=== PATIENT | male | born 1965 | race Two or more races ===

== ENCOUNTER 2021-06-10 03:01 | Emergency (ER) | payer MEDICAID, SELFPAY ==
--- NOTE | ~2021-06-10 | CT_ITS ---
EXAMINATION: CT ABDOMEN AND PELVIS WITHOUT CONTRAST CLINICAL INFORMATION: Hematuria. Rule out kidney stone. COMPARISON: Previous renal ultrasound February 2009 TECHNIQUE: Multidetector volumetric imaging was performed from the superior aspect of the liver through the pubic symphysis. Sagittal and coronal reformatted images were obtained on the technologist's workstation. This CT examination was performed using dose optimization techniques as appropriate, variously including the following: *Automated exposure control *Adjustment of mA and/or kV according to patient size (this includes techniques or standardized protocols for targeted exams where dose is matched to indication/reason for exam; i.e. extremities or head) *Use of iterative reconstruction technique DLP: 976 mGy-cm FINDINGS: Evaluation of the upper abdomen and lower chest is limited due to motion artifact. LUNG BASES: The visualized lung bases are unremarkable. LIVER, GALLBLADDER, AND BILIARY TREE: The liver is normal in size, shape, and attenuation. No focal hepatic lesion or biliary ductal dilatation is present. The gallbladder is unremarkable with no evidence of radiopaque gallstones, gallbladder wall thickening, or obvious pericholecystic inflammatory changes. PANCREAS: Unremarkable. SPLEEN: Unremarkable. ADRENAL GLANDS: Unremarkable. KIDNEYS AND URETERS: The kidneys are normal in size, shape, and attenuation. No hydronephrosis, hydroureter, or calculi seen. No perinephric stranding. BLADDER: Unremarkable. GASTROINTESTINAL TRACT: The small and large bowel are unremarkable. The appendix is unremarkable. ABDOMINAL WALL: There is a small umbilical hernia containing fat. LYMPH NODES: Normal. VASCULAR: Unremarkable. PELVIC VISCERA: Unremarkable. OSSEOUS STRUCTURES: Unremarkable. CT/CT abdomen pelvis wo con IMPRESSION: Limited exam due to motion artifact. No stone or hydronephrosis seen. Fleischner guidelines were followed.
[2021-06-10 03:13] VITALS: BP 161/88; PULSE 98; RESP 16; TEMP 37.2; O2SAT 95; BMI 36.0
[2021-06-10 03:31] LABS: MANUAL DIFF FLAG NO
[2021-06-10 03:33] LABS: Appearance Urine TURBID; Color Urine RED; Glucose Urine UA NEG (NEG); Leukocyte Esterase Urine 2+ (NEG); Nitrite Urine NEG (NEG); Specific Gravity - Urine 1.025 (1.005-1.025); UACC Culture Trigger YES; Urine Blood 3+ (NEG); Urine Ketones NEG (NEG); Urine Protein 2+ MG/DL (NEG-TRACE)
[2021-06-10 03:34] LABS: Basophils Absolute Auto 0.1 X10*3/uL (0.0-0.2); Basophils Percent Auto 0.3 % (0-2); Eosinophils Absolute Auto 0.2 X10*3/uL (0.0-0.4); Eosinophils Percent Auto 0.9 % (0-4); Hematocrit 41.6 % (42.0-52.0); Hemoglobin 13.9 g/dl (14.0-18.0); Imm Gran Abs Auto 0.06 X10*3/uL (0.00-0.03); Imm Gran Pct Auto 0.3 % (0.0-0.4); Lymphocytes Percent Auto 17.4 % (20-40); Mean Corpuscular HGB Conc 33.4 g/dl (31.0-36.0); Mean Corpuscular Hemoglobin 29.4 pg (27.0-33.0); Mean Corpuscular Volume 88.1 fL (80.0-98.0); Mean Platelet Volume 10.7 fL (9.4-12.4); Monocytes Percent Auto 5.9 % (2-11); Neutrophils Absolute Auto 13.1 x10*3/uL (2.0-8.3); Neutrophils Percent Auto 75.2 % (45-73); Platelet Count 211 X10*3/uL (160-400); Red Blood Count 4.72 X10*6/uL (4.60-5.80); Red Cell Distribution Width 12.9 % (11.0-16.0); White Blood Count 17.4 X10*3/uL (4.8-10.8)
[2021-06-10 03:39] LABS: Bacteria Urine TRACE /LPF; Mucus Urine TRACE /LPF; Squamous Epithelial Cell Urine TRACE /LPF
[2021-06-10 03:49] LABS: Alanine Aminotransferase 32 U/L (0-40); Albumin Level 4.3 g/dL (3.5-5.0); Alkaline Phosphatase 84 U/L (39-117); Anion Gap 11 (12-20); Aspartate Amino Transferase 19 U/L (5-37); Bilirubin Total 0.3 mg/dL (0.0-1.0); Blood Urea Nitrogen 14 mg/dL (9-16); Calcium 9.8 mg/dL (8.4-10.2); Carbon Dioxide 24 mmol/L (22-29); Chloride 106 mmol/L (96-108); Creatinine Clr Calc Pharmacy 87.5; Estimated Glomerular Filt Rate > 60; Glucose Random 110 mg/dL (60-115); Potassium 3.8 mmol/L (3.3-5.1); Sodium 137 mmol/L (135-145); Total Protein 7.3 g/dL (6.5-8.0)
[2021-06-10 06:35] VITALS: BP 159/86; PULSE 82; RESP 19; TEMP 36.9; O2SAT 98
--- NOTE | 2021-06-10 07:13 | ED_ITS ---
HPI - Male Genitourinary General Chief complaint: Urogenital-Male Stated complaint: blood in urine, neck pain Time Seen by Provider: 06/10/21 06:51 Source: patient Mode of arrival: ambulatory Limitations: no limitations History of Present Illness HPI Narrative: 56 years old male came in for evaluation of blood in the urine. Patient been having bloody urine for the past 2 days, now he is passing blood clots. Able to urinate, increased urinary frequency but no dysuria. Patient been having some suprapubic discomfort. Patient also complaining of left-sided neck pain and numbness for the past 3 days, otherwise declined any weakness. No chest pain. Patient stated that he feels constipated did not have a bowel movement for 2 days Never had abdominal surgery, no history of small-bowel obstruction. Related Data Previous Rx's Medication Instructions Recorded ciprofloxacin HCl 500 mg tablet 500 mg PO BID #14 tab 06/10/21 (Cipro) Allergies Allergy/AdvReac Type Severity Reaction Status Date / Time FRESH FRUIT Allergy Unknown ITCHING Uncoded 12/11/19 17:11 Review of Systems Review of Systems: all other systems are reviewed and are negative Constitutional: Reports as per HPI and Reports no additional constitutional complaints Eyes: Reports as per HPI and Reports no additional eye complaints Reports system reviewed and no additional complaints, except as documented Cardiovascular: Reports as per HPI and Reports no additional cardiovascular complaints Respiratory: Reports as per HPI and Reports no additional respiratory complaints Gastrointestinal: Reports as per HPI and Reports no additional gastrointestinal complaints Genitourinary: Reports no additional female genitourinary complaints Musculoskeletal: Reports no additional musculoskeletal complaints Skin/Breast: Reports system reviewed and no additional complaints, except as docu Psychiatric: Reports no additional psychiatric complaints Endocrine: Reports no additional endocrine complaints Hematologic/Lymphatic: Reports no additional hematologic/lymphatic complaints Allergic/Immunologic: Reports no additional allergic/immunologic complaints Reports system reviewed and no additional complaints, except as documented and Reports Abnormal speech present [facility] Social History Social History Alcohol intake: current Alcohol intake frequency: 0-2 drinks per day Patient Tobacco Use Status: Current everyday Tobacco user Smoked in Last 30 Days: Yes Use of substances other than those prescribed or required for medical reasons: Yes Substance Use Type: Crack/Cocaine Advance Directives: No Physical Exam Vital Signs: Vital Signs: Last Vital Signs Temp 98.7 F 06/10/21 08:31 Pulse 84 06/10/21 08:31 Resp 16 06/10/21 08:31 BP 176/88 H 06/10/21 08:31 Pulse Ox 96 06/10/21 08:31 BMI result Body Mass Index 36.0 vital signs have been reviewed as appeared to be correct. Blood pressure normal. Heart rate normal. Respiration rate normal. Temperature normal. Oxygen saturation normal. Appearance: Alert. Oriented X3. No acute distress. Head: Normal external exam. Normocephalic. Atraumatic. No Pantoja signs noted. No raccoon eyes noted Eyes: PERRLA. EOMI. Conjunctiva and sclera normal. Eyelids normal. ENT: TM's Normal. Pharynx normal. Uvula midline. Moist mucous membranes. No trismus noted. No drooling noted. No muffled voice noted. Neck: Normal inspection. Neck supple. FROM. No adenopathy. Thyroid Normal. No me ningeal signs. No neck mass noted. CVS: Normal heart rate and rhythm. Heart sound normal. No murmurs noted. Pulses normal throughout. Respiratory: No respiratory distress. Painless inspiration. Breath sounds normal. No wheezes/rales/rhonchi noted. Chest nontender. No accessory muscle usage noted or decreased air movement noted. Abdomen: Soft and nontender. Bowel sounds normal in all 4 quadrants. No distention noted. No organomegaly noted. No visible injury noted. Back: No CVA tenderness. Full range of motion noted. Skin: Skin warm and dry. Normal skin color. Normal skin turgor. No ra shes/lesions/lacerations noted. Extremities: No lower extremity edema. Extremities exhibit normal range of motion. Extremities nontender. Neuro: Oriented X 3. Cranial nerve exam: II-XII are grossly intact No motor deficit. No sensory deficit. Reflexes normal. Course Course Course Narrative: Assessment and plan 56 years old male came in for painless hematuria for 1 day. constipation for [address] of the abdomen pelvis show no reason for the hematuria and ruled out small-bowel obstruction.Patient declined using any anticoagulation therapy. 1. Constipation will give milk of magnesia. 2. painless hematuria will start the patient on Cipro and drink plenty of fluids. And patient follow-up with urologist in 1 week. [facility] - Male Genitourinary Lab Data Attestation: I reviewed the patient's lab results. Result diagrams: 06/10/21 03:30 06/10/21 03:30 Labs: Lab Results 06/10/21 06/10/21 06/10/21 Range/Units 03:30 03:30 03:30 WBC 17.4 H (4.8-10.8) X10*3/uL RBC 4.72 (4.60-5.80) X10*6/uL Hgb 13.9 L (14.0-18.0) g/dl Hct 41.6 L (42.0-52.0) % MCV 88.1 (80.0-98.0) fL MCH 29.4 (27.0-33.0) pg MCHC 33.4 (31.0-36.0) g/dl RDW 12.9 (11.0-16.0) % Plt Count 211 (160-400) X10*3/uL MPV 10.7 (9.4-12.4) fL Immature Gran % (Auto) 0.3 (0.0-0.4) % Neut % (Auto) 75.2 H (45-73) % Lymph % (Auto) 17.4 L (20-40) % [place]uming % (Auto) 5.9 (2-11) % Eos % (Auto) 0.9 (0-4) % Baso % (Auto) 0.3 (0-2) % Lymph # (Auto) 3.0 (1.2-4.9) X10*3/uL [place]uming # (Auto) 1.0 (0.1-1.2) X10*3/uL Eos # (Auto) 0.2 (0.0-0.4) X10*3/uL Baso # (Auto) 0.1 (0.0-0.2) X10*3/uL Abs Immat Gran (auto) 0.06 H (0.00-0.03) X10*3/uL Absolute Neuts (auto) 13.1 H (2.0-8.3) x10*3/uL Absolute Nucleated RBC 0.000 (0.0-0.012) X10*3/uL Nucleated RBC % (auto) 0.0 (0.0-0.2) /100WBC Sodium 137 (135-145) mmol/L Potassium 3.8 (3.3-5.1) mmol/L Chloride 106 (96-108) mmol/L Carbon Dioxide 24 (22-29) mmol/L Anion Gap 11 L (12-20) BUN 14 (9-16) mg/dL Creatinine 1.11 (0.5-1.4) mg/dL Estim Creat Clear Calc 87.5 Estimated GFR > 60 Random Glucose 110 (60-115) mg/dL Lactic Acid (0.5-2.0) mmol/L Calcium 9.8 (8.4-10.2) mg/dL Total Bilirubin 0.3 (0.0-1.0) mg/dL AST 19 (5-37) U/L ALT 32 (0-40) U/L Alkaline Phosphatase 84 (39-117) U/L Troponin I High Sens (<3.5-35.0) ng/L Total Protein 7.3 (6.5-8.0) g/dL Albumin 4.3 (3.5-5.0) g/dL Urine Color RED A Urine Appearance TURBID Urine pH 6.0 (5.0-8.0) Ur Specific [place] 1.025 (1.005-1.025) Urine Protein 2+ H (NEG-TRACE) MG/DL Urine Glucose (UA) NEG (NEG) MG/DL Urine Ketones NEG (NEG) MG/DL Urine Blood 3+ H (NEG) Urine Nitrite NEG (NEG) Ur Leukocyte Esterase 2+ H (NEG) Urine RBC 76-150 H (0) /HPF Urine WBC 10-14 H (0-4) /HPF Ur Squamous Epith Cells TRACE /LPF Urine Bacteria TRACE /LPF Urine Mucus TRACE /LPF 06/10/21 06/10/21 Range/Units 08:41 08:41 WBC (4.8-10.8) X10*3/uL RBC (4.60-5.80) X10*6/uL Hgb (14.0-18.0) g/dl Hct (42.0-52.0) % MCV (80.0-98.0) fL MCH (27.0-33.0) pg MCHC (31.0-36.0) g/dl RDW (11.0-16.0) % Plt Count (160-400) X10*3/uL MPV (9.4-12.4) fL Immature Gran % (Auto) (0.0-0.4) % Neut % (Auto) (45-73) % Lymph % (Auto) (20-40) % [place] % (Auto) (2-11) % Eos % (Auto) (0-4) % Baso % (Auto) (0-2) % Lymph # (Auto) (1.2-4.9) X10*3/uL [place] # (Auto) (0.1-1.2) X10*3/uL Eos # (Auto) (0.0-0.4) X10*3/uL Baso # (Auto) (0.0-0.2) X10*3/uL Abs Immat Gran (auto) (0.00-0.03) X10*3/uL Absolute Neuts (auto) (2.0-8.3) x10*3/uL Absolute Nucleated RBC (0.0-0.012) X10*3/uL Nucleated RBC % (auto) (0.0-0.2) /100WBC Sodium (135-145) mmol/L Potassium (3.3-5.1) mmol/L Chloride (96-108) mmol/L Carbon Dioxide (22-29) mmol/L Anion Gap (12-20) BUN (9-16) mg/dL Creatinine (0.5-1.4) mg/dL Estim Creat Clear Calc Estimated GFR Random Glucose (60-115) mg/dL Lactic Acid 0.7 (0.5-2.0) mmol/L Calcium (8.4-10.2) mg/dL Total Bilirubin (0.0-1.0) mg/dL AST (5-37) U/L ALT (0-40) U/L Alkaline Phosphatase (39-117) U/L Troponin I High Sens 10.1 (<3.5-35.0) ng/L Total Protein (6.5-8.0) g/dL Albumin (3.5-5.0) g/dL Urine Color Urine Appearance Urine pH (5.0-8.0) Ur Specific [place] (1.005-1.025) Urine Protein (NEG-TRACE) MG/DL Urine Glucose (UA) (NEG) MG/DL Urine Ketones (NEG) MG/DL Urine Blood (NEG) Urine Nitrite (NEG) Ur Leukocyte Esterase (NEG) Urine RBC (0) /HPF Urine WBC (0-4) /HPF Ur Squamous Epith Cells /LPF Urine Bacteria /LPF Urine Mucus /LPF Imaging Data CT scan - abdomen: Attestation: I personally reviewed and interpreted this imaging study as follows: Radiologist's impression: Limited exam due to motion artifact. No stone or hydronephrosis seen. ? Discharge Plan Discharge Clinical Impression: Hematuria Patient Disposition: Home, Self-Care Instructions: Hematuria (ED) Prescriptions: New ciprofloxacin HCl [Cipro] 500 mg tablet 500 mg PO BID Qty: 14 0RF Referrals: [facility] [Primary Care Provider] - 2 days Kvng Childs MD [Physician] - 2 days
[2021-06-10 08:31] VITALS: BP 176/88; PULSE 84; RESP 16; TEMP 37.1; O2SAT 96
[2021-06-10 08:59] LABS: Lactic Acid 0.7 mmol/L (0.5-2.0)
[2021-06-10 09:09] LABS: Troponin-I High Sensitivity 10.1 ng/L (<3.5-35.0)
[2021-06-10] MEDS: Milk of Magnesia 30 ML ORAL.SUSP PO (10:05)
== END 2021-06-10 10:09 | disposition home or self-care (01) ==
PROVIDERS: Emergency Provider Emergency Medicine
DX: R31.9 Hematuria, unspecified (principal); K59.00 Constipation, unspecified; F17.200 Nicotine dependence, unspecified, uncomplicated
CPT/HCPCS: 36415; 74176; 80053; 81001; 83605; 84484; 85025; 87040; 87086; 99284

== ENCOUNTER 2021-06-24 09:39 | Outpatient (REF) | payer MEDICAID, SELFPAY ==
[2021-06-24 16:13] LABS: Urine Cytology See Pathology rpt
== END 2021-06-24 09:40 | disposition home or self-care (01) ==
LOC: HO.LAB 09:39
PROVIDERS: PCP Family Medicine
DX: R31.0 Gross hematuria (principal); Z72.89 Other problems related to lifestyle; F17.210 Nicotine dependence, cigarettes, uncomplicated
CPT/HCPCS: 87086; 88112; 99202

== ENCOUNTER 2021-07-06 15:36 | Outpatient (REF) | payer MEDICAID, SELFPAY ==
--- NOTE | ~2021-07-06 | CT_ITS ---
EXAMINATION: CT HEAD WITHOUT CONTRAST CLINICAL INFORMATION: Headache COMPARISON: Previous head CT February 2019 TECHNIQUE: Contiguous axial imaging was performed from the skull base to vertex without intravenous administration of contrast. This CT examination was performed using dose optimization techniques as appropriate, variously including the following: *Automated exposure control *Adjustment of mA and/or kV according to patient size (this includes techniques or standardized protocols for targeted exams where dose is matched to indication/reason for exam; i.e. extremities or head) *Use of iterative reconstruction technique DLP: 976 mGy-cm FINDINGS: There is no evidence of acute intracranial hemorrhage or territorial infarction. No abnormal mass effect or midline shift is seen. Shields to white matter differentiation is well preserved. No extra-axial fluid collections are identified. The ventricles are normal in size. There is no abnormal attenuation within the brain parenchyma. The osseous structures and soft tissues are normal. There are inflammatory changes with membranous soft tissue thickening seen in the bilateral maxillary sinuses. This appears slightly improved from 2019 exam. No air-fluid levels to suggest acute sinusitis is seen. Mastoid air cells and middle ears are clear. CT/CT head/brain wo con IMPRESSION: No acute intracranial findings.
== END 2021-07-06 15:37 | disposition home or self-care (01) ==
LOC: HO.CT 15:36
PROVIDERS: Visit Provider Registered Nurse
DX: G44.84 Primary exertional headache (principal)
CPT/HCPCS: 70450

== ENCOUNTER → 2021-08-25 13:06 | Outpatient (BNVA) | payer MEDICAID, SELFPAY | PROVIDERS: PCP Family Medicine | DX: Z13.89 Encounter for screening for other disorder (principal) ==

== ENCOUNTER 2021-10-02 08:27 | Emergency (ER) | payer MEDICAID, SELFPAY ==
--- NOTE | ~2021-10-02 | XR_ITS ---
EXAMINATION: XR SHOULDER, RIGHT CLINICAL INFORMATION: Pain. COMPARISON: Left shoulder 09/01/2011 TECHNIQUE: AP external rotation, Grashey, scapular Y, and axillary views of the right shoulder. FINDINGS: There is mild loss of glenohumeral and AC joint space with periarticular spurring around the left AC joint. No acute fracture or dislocation seen. The soft tissues are normal. XR/XR shoulder RT min 2V IMPRESSION: Mild degenerative changes glenohumeral and AC joint. No visible acute fracture or dislocation seen.
[2021-10-02 08:37] VITALS: BP 158/65; PULSE 63; RESP 18; TEMP 36.6; O2SAT 99; BMI 36.0
--- NOTE | 2021-10-02 08:47 | ED.EXTPRO ---
HPI - Extremity Problem General Chief complaint: Extremity Problem Stated complaint: r shoulder and l elbow pain no inj Time Seen by Provider: 10/02/21 08:44 Source: patient, RN notes reviewed and old records reviewed Mode of arrival: ambulatory Limitations: no limitations History of Present Illness HPI Narrative: This is a [id number]-male presenting today with complaints of chronic right shoulder pain for 20 years, worsening over the last couple months. 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 He rates his current pain as an aching 6/10 pain that is intermittent and worsens with movement of his right arm. He denies any numbness or tingling. He reports that when he applies warm towels to his right shoulder which provides him with some relief, otherwise denies taking any medications to treat his symptoms. Denies any fevers or chills. He has not been seen by orthopedics or physical therapy for his right shoulder pain. No other complaints or concerns at time. MD Complaint: extremity pain Pain Consistency: constant Location: right (shoulder) Severity scale (1-10): 6 Quality: aching Radiation: none Relieving factors: immobilization, rest and other (Warm compresses) Exacerbating factors: range of motion Associated symptoms: denies other symptoms Related Data Home Medications Medication Instructions Recorded Confirmed sulfamethoxazole 800 1 tab PO Q12H 06/24/21 mg-trimethoprim 160 mg tablet Previous Rx's Medication Instructions Recorded ciprofloxacin HCl 500 mg tablet 500 mg PO BID #14 tabs 06/10/21 (Cipro) ibuprofen 800 mg tablet 800 mg PO Q8H PRN pain #14 tabs 10/02/21 Allergies Allergy/AdvReac Type Severity Reaction Status Date / Time FRESH FRUIT Allergy Unknown ITCHING Uncoded 08/25/21 13:07 Review of Systems Review of Systems: Constitutional: No Fever, No Chills ENT/Mouth: No sore throat, No Rhinorrhea, No Swallowing Difficulty Cardiovascular: No Chest Pain, No SOB, No Orthopnea, No Edema Respiratory: No Cough, No Sputum, No Wheezing, No dyspnea Gastrointestinal: No Nausea, No Vomiting, No Diarrhea, No abdominal Pain Musculoskeletal: + right shoulder pain No Myalgias Skin: No Skin Lesions, No rash Neuro: No Weakness, No Numbness, No Dizziness, No Headache Psych: No Anxiety/Panic, No Depression Heme/Lymph: No Bruising, No Lymphadenopathy [facility] Past Medical History Medical History Hematuria Social History Social History Alcohol intake: current Alcohol intake frequency: 0-2 drinks per day Patient Tobacco Use Status: Current everyday Tobacco user Substance Use Type: Crack/Cocaine Advance Directives: No Advance Directives Information Provided: No Physical Exam Vital Signs: Vital Signs: Last Vital Signs Temp 97.9 F 10/02/21 08:37 Pulse 63 10/02/21 08:37 Resp 18 10/02/21 08:37 BP 158/65 H 10/02/21 08:37 Pulse Ox 99 10/02/21 08:37 O2 Del Method 10/02/21 08:37 BMI result Body Mass Index 36.0 Appearance: Alert. Oriented X3. No acute distress. Eyes: Pupils equal, round and reactive to light. ENT: Pharynx normal. Neck: Normal inspection. Neck supple. CVS: Normal heart rate and rhythm. Pulses normal. Respiratory: Lungs clear to auscultation bilaterally. No wheezes, rhonchi or rales. No respiratory distress. Breath sounds normal. Skin: Skin warm and dry. Normal skin color. Normal skin turgor. No rashes. Extremities: Right shoulder is nontender to palpation. Range of motion is limited secondary to pain, unable to abduct right shoulder past 30 degrees secondary to pain, able to forward flex to 160 degrees without pain. Positive lift-off and empty can test. Good appian developer strength bilaterally. Distal pulses and sensation intact. No overlying skin changes, edema, or erythema to the right shoulder. Neuro: Oriented X 3. Grossly normal, nonfocal Course Course Course Narrative: This is a [id number]-male presenting today with complaints of chronic right shoulder pain and left elbow pain x ?. Xray of right shoulder ordered in triage. Reevaluation(s) Reevaluation #1: Right shoulder x-ray reviewed as mild degenerative changes glenohumeral and AC joint. No fracture or dislocation seen. Patient discharged on ibuprofen 800 mg and advised to follow-up with orthopedics for further management as I suspect this is possibly rotator cuff or ligamentous injury. Patient understands and agrees with this plan. Time: 09:23 MDM - Extremity (Nontraumatic) Imaging Data Right Shoulder x-ray : Attestation: I personally reviewed and interpreted this imaging study as follows: Radiologist's impression: Impression: Mild degenerative changes glenohumeral and AC joint. No visible acute fracture dislocation seen. Dictated By: Jt Sterling. Critical Care Time Critical Care Time Critical Care Time: No Discharge Plan Discharge Clinical Impression: Shoulder pain, right Patient Disposition: Home, Self-Care Instructions: Shoulder Pain (ED) Additional Instructions: Your right shoulder x-rays showed no fracture today. There is concern for ligament/tendon/muscle injury. You should follow up with orthopedics for further testing and management. Take Ibuprofen 800mg every 8 hours as needed for pain. If you develop new or worsening symptoms call 911 or come back to the ER for further evaluation. Prescriptions: New ibuprofen 800 mg tablet 800 mg PO Q8H PRN (Reason: pain) Qty: 14 0RF No Action ciprofloxacin HCl [Cipro] 500 mg tablet 500 mg PO BID Qty: 14 0RF sulfamethoxazole-trimethoprim 800-160 mg tablet 1 tab PO Q12H Referrals: Raghav Carson MD [Physician] - (Right shoulder pain, x-ray negative, concern for rotator cuff pathology.)
== END 2021-10-02 09:38 | disposition home or self-care (01) ==
PROVIDERS: Emergency Provider Emergency Medicine; PCP Family Medicine
DX: M25.511 Pain in right shoulder (principal)
CPT/HCPCS: 73030; 99283

== ENCOUNTER 2022-06-27 18:11 | Emergency (ER) | payer MEDICAID, SELFPAY ==
[2022-06-27 18:44] VITALS: BP 156/84; PULSE 93; RESP 18; TEMP 36.7; O2SAT 97; BMI 36.0
[2022-06-27 19:20] LABS: IDNOW Serial# 08D9AD1C; Strep A Nucleic Acid Negative (Negative)
--- NOTE | 2022-06-27 19:30 | ED.GENADULT ---
HPI - General Adult General Chief complaint: General Medical Stated complaint: Sore throat Related Data Home Medications ?Medication ?Instructions ?Recorded ?Confirmed sulfamethoxazole 800 1 tab PO Q12H 06/24/21 mg-trimethoprim 160 mg tablet Previous Rx's ?Medication ?Instructions ?Recorded ciprofloxacin HCl 500 mg tablet 500 mg PO BID #14 tabs 06/10/21 (Cipro) ibuprofen 800 mg tablet 800 mg PO Q8H PRN pain #14 tabs 10/02/21 Allergies Allergy/AdvReac Type Severity Reaction Status Date / Time FRESH FRUIT Allergy Unknown ITCHING Uncoded 08/25/21 13:07 [facility] Past Medical History Medical History Hematuria Social History Social History Alcohol intake: current Alcohol intake frequency: 0-2 drinks per day Patient Tobacco Use Status: Current everyday Tobacco user Substance Use Type: Crack/Cocaine Physical Exam ED Vital Signs: Vital Signs - 24 hr 06/27/22 18:44 Temperature 98.1 F Pulse Rate 93 Respiratory Rate 18 Blood Pressure 156/84 H Pulse Oximetry 97 Oxygen Delivery Method Room Air BMI result Body Mass Index 36.0 Course Course Course Narrative: 1928 57-year-old male presents with sore throat x2 days with associated fatigue and malaise. Patient also reporting congestion. Daughter sick with similar symptoms. Denies fevers, chills, chest pain, shortness of breath, nausea, vomiting. Physical exam with stable vitals, patient is airway patent. Speaking in full sentences controlling secretions well planned viral testing strep test Medical Decision Making Lab Data Labs: Lab Results 06/27/22 Range/Units 18:47 COVID-19 (SHAQ) Negative (Negative) COVID-19 Clin Com See Note Influenza Type A (CHALINO) Negative (Negative) Influenza Type B (CHALINO) Negative (Negative) Influenza A & B Note See Note S. pyogenes GrpA CHALINO Negative (Negative) Discharge Plan Discharge Clinical Impression: Eloped from emergency department Patient Disposition: Elopement Prescriptions: No Action ciprofloxacin HCl [Cipro] 500 mg tablet 500 mg PO BID Qty: 14 0RF ibuprofen 800 mg tablet 800 mg PO Q8H PRN (Reason: pain) Qty: 14 0RF sulfamethoxazole-trimethoprim 800-160 mg tablet 1 tab PO Q12H Discharge Date/Time: 06/27/22 20:59 Print Language: Singaporean
[2022-06-27 19:31] LABS: COVID-19 Test Negative (Negative); IDNOW Serial# 08D9AD1C; IDNOW Serial# 55D5AD1C; Influenza A Negative (Negative); Influenza B2 Negative (Negative)
== END 2022-06-27 20:59 | disposition left against medical advice (07) ==
PROVIDERS: Physician Assistant; Emergency Provider Emergency Medicine; PCP Family Medicine
DX: J02.9 Acute pharyngitis, unspecified (principal); Z20.822 Contact with and (suspected) exposure to COVID-19
CPT/HCPCS: 87502; 87635; 87651; 99281; 99283

== ENCOUNTER 2023-01-09 10:53 | Outpatient (REF) | payer MEDICAID, SELFPAY ==
--- NOTE | ~2023-01-09 | XR_ITS ---
EXAMINATION: XR KNEE, LEFT CLINICAL INFORMATION: Acute pain and swelling left knee after fall 2 weeks ago. COMPARISON: None available. TECHNIQUE: Four views of the left knee. FINDINGS: There is mild loss of medial and patellofemoral compartment joint space with mild periarticular spurring. No visible acute fracture, dislocation or subluxation seen. No bony erosive changes. The soft tissues are normal. XR/XR knee LT 4V IMPRESSION: Mild degenerative changes medial and patellar femoral compartments. No visible acute fracture or dislocation seen.
== END 2023-01-09 10:54 | disposition home or self-care (01) ==
LOC: HO.HHCX 10:53
PROVIDERS: Visit Provider Internal Medicine Geriatric Medicine
DX: M25.562 Pain in left knee (principal)
CPT/HCPCS: 73564

== ENCOUNTER 2023-02-09 09:55 | Outpatient (AMB) | payer MEDICAID, SELFPAY ==
[2023-02-09 10:03] VITALS: BMI 36.0
--- NOTE | 2023-02-09 10:03 | A.OFFVIS_ITS ---
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 Patient reports he fell and twisted his knee. He states that his knee pain is worse in the morning and he gets a bit stiff. No hx of PT, Injections and surgeries. Hx of taking 3+ months of Tylenol and ibuprofen with no relief. Hx of 3+ months of using a brace with no relief. Pain is on the whole knee and behind the knee. 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 The patient reports on 01/04/2023 he fell and twisted his left knee. He claims the pain is worse in the morning and he has stiffness. He reports that he has been taking Tylenol and ibuprofen for 3+ months with no relief of pain in the knee. He states the pain is in the entire knee. He confirms the use of a brace for 3+ months on the left knee with no relief. He denies prior history of physical therapy, injections, or surgeries. [facility] Medical History Hematuria Social History Alcohol intake: current Alcohol intake frequency: 0-2 drinks per day Patient Tobacco Use Status: Current everyday Tobacco user Substance Use Type: Crack/Cocaine Review of Systems Const All systems reviewed & are unremarkable except as noted in HPI and below Physical Exam Vital Signs: BMI result Body Mass Index 36.0 Const General: cooperative and no acute distress Orientation/consciousness: patient oriented x3 Resp Effort & Inspection: normal respiratory effort and able to speak in complete sentences Cardio Peripheral pulses: Peripheral pulses 2+ throughout Skin General skin exam: no rashes or lesions noted Neuro General: patient oriented x3 Extrem Other: Left knee: Normal to inspection. No ecchymosis, erythema, or joint effusion. No tenderness to palpation to the medial or lateral joint lines. Full knee extension and flexion. Crepitus felt with ROM. Negative Marilyn's. NVI. Office Procedures Joint Injection/Drain Joint Injection/Drain Primary Site: left knee Prep: site was prepped using aseptic technique, ethochloride spray was applied and injection warnings given Injected: 80 mg of, DepoMedrol, with 8 mL of (2% plain lido ) and in the joint Approach Used: anterolateral Procedure: The patient tolerated the procedure well, but had some pain with the injection and there was some relief with the local anesthesia Coding 99135 - Large joint Procedure code (CPT) selection complete Assessment & Plan Assessment & Plan (1) Osteoarthritis of left knee: Code(s): M17.12 - Unilateral primary osteoarthritis, left knee Qualifiers: Osteoarthritis type: unspecified Qualified Code(s): M17.12 - Unilateral primary osteoarthritis, left knee Plan Mr. Mccall is a 57-year-old male who presents in the office today, as a new patient, for an evaluation of left knee pain. The patient reports on 01/04/2023 he fell and twisted his left knee. He claims the pain is worse in the morning and he has stiffness. He reports that he has been taking Tylenol and ibuprofen for 3+ months with no relief of pain in the knee. He states the pain is in the entire knee. He confirms the use of a brace for 3+ months on the left knee with no relief. He denies prior history of physical therapy, injections, or surgeries. The patient was offered a cortisone injection in the left knee with 80 mg of DepoMedrol. The patient was explained the risk, benefits, and alternatives to receiving this injection. After receiving consent for the injection, the patient had the procedure done while in office today. The patient tolerated the procedure well with no complications. Follow up will be PRN, or sooner if needed. X-rays of the left knee which were obtained while in the office today and were reviewed by me, Roz Romero PA-C, revealed osteoarthritis. Orders: Orders XR knee standing BI Today M25.569 - Pain in unspecified knee XR knee LT 1V Today M25.569 - Pain in unspecified knee Patient Instructions: Scribed for Roz Romero PA-C by Marilu Mosley medical health researcher, on 02/09/2023 at 9:57 am, EST. Coding Level of Care Code New Pt Level 4 (68087) Diagnoses Osteoarthritis of left knee, unspecified osteoarthritis type M17.12 Osteoarthritis type: unspecified CPT Codes Coding - 85653 Large joint: 81080 - Large joint ([id number])
== END 2023-02-09 10:26 | disposition home or self-care (01) ==
PROVIDERS: PCP Family Medicine; Visit Provider Physician Assistant
DX: M17.12 Unilateral primary osteoarthritis, left knee (principal)
CPT/HCPCS: 20610; 99204

== ENCOUNTER 2023-02-09 11:11 | Outpatient (REF) | payer MEDICAID, SELFPAY ==
--- NOTE | ~2023-02-09 | XR_ITS ---
EXAMINATION: XR KNEE AP STANDING XR KNEE, LEFT CLINICAL INFORMATION: Pain. COMPARISON: Prior radiographs, most recently 01/09/2023. TECHNIQUE: AP bilateral standing view of the knees was obtained. An axial view of the left knee was obtained. FINDINGS: Bony alignment and mineralization are normal. The bilateral lateral and medial joint space compartments and the left patellofemoral compartment are well-maintained. No fracture or dislocation is seen. There is trace peripheral osteophyte formation of the medial joint space compartment of the left knee. No significant varus or valgus configuration is seen. No focal soft tissue swelling, gas or foreign body is seen. XR/XR knee standing BI IMPRESSION: Unremarkable bilateral knee radiographs.
--- NOTE | ~2023-02-09 | XR_ITS ---
EXAMINATION: XR KNEE AP STANDING XR KNEE, LEFT CLINICAL INFORMATION: Pain. COMPARISON: Prior radiographs, most recently 01/09/2023. TECHNIQUE: AP bilateral standing view of the knees was obtained. An axial view of the left knee was obtained. FINDINGS: Bony alignment and mineralization are normal. The bilateral lateral and medial joint space compartments and the left patellofemoral compartment are well-maintained. No fracture or dislocation is seen. There is trace peripheral osteophyte formation of the medial joint space compartment of the left knee. No significant varus or valgus configuration is seen. No focal soft tissue swelling, gas or foreign body is seen. XR/XR knee LT 1V IMPRESSION: Unremarkable bilateral knee radiographs.
== END 2023-02-09 11:12 | disposition home or self-care (01) ==
LOC: HO.HOSX 11:11
PROVIDERS: Visit Provider Physician Assistant
DX: M17.12 Unilateral primary osteoarthritis, left knee (principal)
CPT/HCPCS: 20610; 73560; 73565; 99212; J1040

== ENCOUNTER 2023-03-08 11:02 | Outpatient (REF) | payer MEDICAID, SELFPAY ==
--- NOTE | ~2023-03-08 | XR_ITS ---
EXAMINATION: XR CHEST, 2 VIEWS CLINICAL INFORMATION: Night sweats. COMPARISON: 02/04/2009 TECHNIQUE: PA and lateral views of the chest were obtained. FINDINGS: Lungs are clear. No consolidation, pneumothorax, or pleural effusion. Cardiac and mediastinal contours are normal. Pulmonary vasculature is unremarkable. Trachea is midline. Osteoarthritis is evident at the acromioclavicular joints bilaterally. No acute osseous findings. XR/XR chest 2V IMPRESSION: No acute cardiopulmonary findings.
[2023-03-08 13:09] LABS: MANUAL DIFF FLAG NO
[2023-03-08 13:23] LABS: Basophils Absolute Auto 0.1 X10*3/uL (0.0-0.2); Basophils Percent Auto 0.7 % (0-2); Eosinophils Absolute Auto 0.2 X10*3/uL (0.0-0.4); Eosinophils Percent Auto 2.4 % (0-4); Hematocrit 45.6 % (42.0-52.0); Hemoglobin 15.3 g/dl (14.0-18.0); Imm Gran Abs Auto 0.03 X10*3/uL (0.00-0.03); Imm Gran Pct Auto 0.4 % (0.0-0.4); Lymphocytes Absolute Auto 2.7 X10*3/uL (1.2-4.9); Lymphocytes Percent Auto 36.3 % (20-40); Mean Corpuscular HGB Conc 33.6 g/dl (31.0-36.0); Mean Corpuscular Hemoglobin 29.9 pg (27.0-33.0); Mean Corpuscular Volume 89.1 fL (80.0-98.0); Mean Platelet Volume 11.7 fL (9.4-12.4); Monocytes Absolute Auto 0.5 X10*3/uL (0.1-1.2); Monocytes Percent Auto 6.9 % (2-11); Neutrophils Absolute Auto 3.9 x10*3/uL (2.0-8.3); Neutrophils Percent Auto 53.3 % (45-73); Platelet Count 230 X10*3/uL (160-400); Red Blood Count 5.12 X10*6/uL (4.60-5.80); Red Cell Distribution Width 12.7 % (11.0-16.0); White Blood Count 7.4 X10*3/uL (4.8-10.8)
[2023-03-08 14:01] LABS: Amphetamine Screen Urine Not Detected (Not Detect); Barbiturates, Urine Not Detected (Not Detect); Benzodiazepines Screen Urine Not Detected (Not Detect); Cannabinoid Screen Urine Not Detected (Not Detect); Cocaine Screen Urine POSITIVE (Not Detect); Fentanyl, urine Not Detected (Not Detect); Opiate Screen Urine Not Detected (Not Detect); Phencyclidine Screen Urine Not Detected (Not Detect)
[2023-03-08 14:02] LABS: Alanine Aminotransferase 19 U/L (0-40); Albumin Level 4.1 g/dL (3.5-5.0); Alkaline Phosphatase 77 U/L (39-117); Anion Gap 11 (12-20); Aspartate Amino Transferase 15 U/L (5-37); Bilirubin Direct 0.1 mg/dL (0.0-0.5); Bilirubin Total 0.3 mg/dL (0.0-1.0); Blood Urea Nitrogen 19 mg/dL (9-16); Calcium 9.5 mg/dL (8.4-10.2); Carbon Dioxide 24 mmol/L (22-29); Chloride 106 mmol/L (96-108); Estimated Glomerular Filt Rate > 60; Glucose Random 108 mg/dL (60-115); Sodium 137 mmol/L (135-145); Total Protein 7.3 g/dL (6.5-8.0)
[2023-03-08 14:07] LABS: Thyroid Stimulating Hormone 0.68 uIU/mL (0.32-4.0)
[2023-03-11 15:24] LABS: TS Negative Control Passed; TS Panel A 0; TS Panel B 0; TS Positive Control Passed; TSpotTB Negative (Negative)
== END 2023-03-08 11:03 | disposition home or self-care (01) ==
LOC: HO.HHCX 11:02
PROVIDERS: Visit Provider Student in an Organized Health Care Education/Training Program
DX: Z11.1 Encounter for screening for respiratory tuberculosis (principal); R61 Generalized hyperhidrosis
CPT/HCPCS: 71046; 80048; 80076; 80307; 84443; 85025; 86481

== ENCOUNTER 2023-06-25 09:29 | Outpatient (REF) | payer MEDICAID, SELFPAY ==
--- NOTE | ~2023-06-25 | XR_ITS ---
EXAMINATION: XR ANKLE, LEFT CLINICAL INFORMATION: Ankle pain COMPARISON: None available. TECHNIQUE: AP, lateral, and mortise views of the left ankle. FINDINGS: No acute fracture or dislocation. Few well-corticated osseous fragments adjacent to the medial malleolus may reflect sequelae of remote avulsion injury or degenerative change. Mild osteoarthritis of the foot with degenerative spurring of the dorsal midfoot, Achilles tendon enthesopathy and plantar calcaneal spurring. Soft tissues are unremarkable. No joint effusion. XR/XR ankle LT min 3V IMPRESSION: 1. Few well-corticated osseous fragments adjacent to the medial malleolus may reflect sequelae of remote avulsion injury or degenerative change. 2. Mild osteoarthritis of the foot with degenerative spurring of the dorsal midfoot, Achilles tendon enthesopathy and plantar calcaneal spurring.
== END 2023-06-25 09:30 | disposition home or self-care (01) ==
LOC: HO.HHCX 09:29
PROVIDERS: Visit Provider Nurse Practitioner Family
DX: M25.572 Pain in left ankle and joints of left foot (principal)
CPT/HCPCS: 73610